=== PATIENT | female | born 1940 | race Caucasian/White ===

== ENCOUNTER → 2024-06-07 10:52 | Outpatient (REF) | payer OTHER, SELFPAY | LOC: RCS 10:52 | PROVIDERS: ATTENDING PHYSICIAN Internal Medicine Cardiovascular Disease; FAMILY PHYSICIAN Nurse Practitioner Family | DX: I48.0 Paroxysmal atrial fibrillation (principal); I27.20 Pulmonary hypertension, unspecified; E11.9 Type 2 diabetes mellitus without complications; I10 Essential (primary) hypertension | CPT/HCPCS: 93306 ==

== ENCOUNTER 2024-08-15 06:06 | Day surgery (SDC) | payer OTHER, SELFPAY ==
[2024-08-03 10:55] VITALS: BMI 25.6
[2024-08-03 11:31] LABS: ALT (SGPT) 15 U/L (0-35); AST (SGOT) 19 U/L (14-36); Albumin 4.3 g/dl (3.5-5.0); Alkaline Phosphatase 67 U/L (38-126); Blood Urea Nitrogen 23 mg/dl (7-17); Calcium 9.2 mg/dl (8.4-10.2); Carbon Dioxide 26 mmol/L (22-30); Chloride 108 mmol/L (98-107); Estimated Creatinine Clearance 35 ml/min; Glucose 310 mg/dl (70-99); Potassium 4.2 mmol/L (3.5-5.1); Sodium 141 mmol/L (135-145); Total Bilirubin 0.9 mg/dl (0.2-1.3); Total Protein 6.7 g/dl (6.3-8.2); eGFR > 60.00
[2024-08-03 12:10] LABS: % Basophils 0.8 % (0-2); % Eosinophils 0.8 % (0-6); % Immature Granulocytes 0.5 % (0-0.5); % Lymphocytes 28.6 % (20.5-51.1); % Monocytes 5.8 % (1.7-9.3); % Neutrophils 63.5 % (42.2-75.2); Absolute Basophils 0.1 10^3/uL (0-0.2); Absolute Eosinophils 0.1 10^3/uL (0-0.7); Absolute Lymphocytes 2.5 10^3/uL (1.2-3.4); Absolute Monocytes 0.5 10^3/uL (0.1-0.6); Absolute Neutrophils 5.4 10^3/uL (1.4-6.5); Hematocrit 41.7 % (37.0-47.0); Hemoglobin 13.4 g/dL (12.0-16.0); Mean Corp Hgb Conc. 32.1 g/dL (33.0-37.0); Mean Corpuscular Hgb 27.8 pg (27.0-31.0); Mean Corpuscular Volume 86.5 fL (81.0-99.0); Mean Platelet Volume 11.4 fL (7.4-10.4); Nucleated Red Blood Cells % 0 %; Platelet Count 158 10^3/uL (130-400); Red Blood Cell Count 4.82 10^6/uL (4.20-5.40); Red Cell Dist. Width 16.3 % (11.5-14.5); White Blood Cell Count 8.6 10^3/uL (4.8-10.8)
[2024-08-15] VITALS (13 sets, daily range): BP systolic 104–145; BP diastolic 47–78
[2024-08-15 06:50] LABS: Glucose - Point of Care 144 mg/dl (70-99)
[2024-08-15] MEDS: NSS 500 IV (06:56)
--- NOTE | 2024-08-15 09:29 | ITS.CL.ABL ---
[employer] - Ablation
Ablation
Procedure Report:
AFIB ablation:
Mr. Chen is a very pleasant 84 yr old woman with symptomatic paroxysmal AF, is recommended for atrial fibrillation ablation.
Date of the Procedure:
08/15/2024
Indications:
Paroxysmal atrial fibrillation
Pre-Operative Diagnosis:
Paroxysmal atrial fibrillation
Post-Operative Diagnosis:
Paroxysmal atrial fibrillation
Procedure Performed:
Atrial fibrillation ablation with Pulsed-Field approach for pulmonary vein isolation
Performing Physician:
Felix Espinoza MD
Assistants:
EP staff
Anesthesia:
See anesthesia records
Detailed Description of the Procedure:
Written informed consent was obtained from the patient after a full explanation of the risks and benefits of the procedure including the risks of sedation and anesthesia.
The patient was brought to the electrophysiology laboratory in stable condition in fasting state. Continuous electrocardiographic and hemodynamic monitoring was initiated.
The initial rhythm was sinus.
The procedure site was meticulously prepared with surgical scrub and allowed to dry with no pooling. Sterile draping was applied to cover the procedure site. The image intensifier was draped with sterile bag and positioned over the patient. After
infusion of local anesthetic, vascular access was obtained under ultrasound guidance and sheaths were placed over guide wire as detailed below.
Sheath and Catheter Placement:
The following catheters / sheaths were placed
Sheaths:
��������� 17Fr steerable sheath ([employer]ur[employer]icsadrive�, [email or web address]) in right femoral
��������� 9Fr in right femoral vein
Catheters:
��������� HIPOLITO HD Grid mapping catheter � at locations of RA, LA
��������� Farawave� PFA catheter
��������� ICE catheter � AcuNav - at locations of RA, SVC, and RV.
Intracardiac ECHO:
An 8-Mauritian AcuNav intracardiac ECHO (ICE) probe was advanced through the 9-Mauritian sheath in the right femoral vein into the right atrium under fluoroscopic and ICE ultrasound image guidance and a baseline ECHO study was performed. The left atrial
size was normal. There was moderate tricuspid regurgitation. The aortic valve was grossly normal. There was normal left ventricular systolic functions. There is trace pericardial effusion. All the four veins were identified and has flow identified.
There was good flow noted in the LASHAY.
During the procedure, ICE was used for monitoring of complications, guidance of trans-septal puncture, monitor the catheter position and tracking ablation lesions. No change in the pericardial space noted throughout the procedure.
Trans-septal Puncture:
Heparin was initiated and infused to maintain appropriate ACT. A pigtail guidewire was advanced through the 8-Mauritian sheath in the right femoral vein into the superior vena cava under fluoroscopic and ICE guidance. The 9-Mauritian sheath was exchanged
for a Faradrive sheath which was advanced into the superior vena cava. A transseptal RF pigtail via Faradrive connect system was utilized to perform the trans-septal puncture. The apparatus was withdrawn until it was in contact with the fossa
ovalis. The position was adjusted based on fluoroscopy and ultrasound images from ICE. Under fluoroscopic, hemodynamic and ICE ultrasound guidance, left atrium was cannulated by applying RF energy. Once atrial septum was cannulated, the pigtail wire
was advanced through the needle into the left atrium. The guide wire was advanced into the left superior pulmonary vein. Both the sheath and the dilator was advanced into the left atrium. The dilator with the needle was withdrawn. Blood was
aspirated from the Faradrive sheath and arterial blood confirmed. The sheath was flushed. Saline injection noted into the left atrium on ICE. The mapping catheter was advanced in the sheath into the left pulmonary vein. Left atrial pressure was
measured.
3D Electroanatomic Mapping:
Using the HD Grid catheter advanced through sheath into the left atrium, an electroanatomic map (EAM) of the left atrium was created using [employer] HIPOLITO mapping system. The map was used for localization of catheter position and tacking of ablation
lesions.
The EAM of the left atrium showed 4 pulmonary veins with all 4 veins electrically connected to the body the LA. It showed normal voltage on the posterior and anterior wall of the LA. The LA was mildly dilated in size.
Following the EAM, preparation were made for ablation.
Ablation:
Ablation # 1: Pulmonary vein Isolation:
Glycopyrrolate was not given due to the presence of dual chamber pacemaker. Using [employer] pulsed wave ablation system, pulmonary vein isolation was achieved. First the ablation catheter was placed in the LSPV and ostial ablation lesions were
performed in a counter clock gonzales approach all around the PV ostium circumferentially using the Farapulse catheter in �Guin� formation. Then the catheter was placed on the antral location (in Disc/flower formation) and multiple ablation lesions
were placed circumferentially on the antrum of the vein.
In the similar fashion, the LIPV were isolated.
Then the catheter was moved to right sided veins. The ostial and antral ablations were placed as noted above.
EPS and Confirmation of the PVI and bidirectional block:
Following achievement of entrance block at the pulmonary veins, pacing from the HD catheter in each of the four veins at 10 milliamps for 2 milliseconds showed entrance and exit block. All PVI were rechecked at the end of the case and remained
isolated. Entrance and exit block were demonstrated in all veins.
Post ablation Electroanatomic mapping:
Once ablation was completed, the EAM of the LA was done again in sinus rhythm with excellent demarcation of LA myocardium and isolated antral tissue. There was no significant scarring noted in the LA.
The LASHAY had healthy signals and was not isolated.
Procedure End
ICE study was done again that showed no epicardial accumulation. No complications noted.
Following the completion of the EP study, catheters were removed. Protamine 40 mg was given at the end of the procedure and ACT was checked repeatedly. The sheaths were removed and hemostasis achieved with �Figure of 8� and manual compression after
acceptable ACT is achieved.
Left atrial Pressure:
Pre-ablation: Mean LA pressure was 9mmHg
Post-ablation: Mean LA pressure was 22mmHg
Post-ablation: Mean RA pressure was 8mmHg
Estimated Blood loss:
<10 cc
Specimens Removed:
None.
Implants / Devices:
None
Urine output:
None
Packs / Drains/ Tubes:
None
Instrument / Sponge Count Correct:
Yes
Complications of the Procedure:
None
Condition of Patient at Time of Transfer:
Hemodynamically stable with no neurological or vascular compromise.
Summary:
Successful atrial fibrillation ablation with Pulsed Field approach for pulmonary vein isolation.
Figures from the Procedure:
Figure 1: The electroanatomic mapping (EAM) of the left atrium with bipolar voltage (purple indicates normal electrical activity with weller as no myocardial muscle electric activity indicating a line of block or scar.
[2024-08-15 11:59] LABS: Glucose - Point of Care 209 mg/dl (70-99)
[2024-08-15 12:03] LABS: ACT-LR - POC 364 Seconds (116-155)
[2024-08-15 12:03] LABS: ACT-LR - POC 350 Seconds (116-155)
[2024-08-15] MEDS: LASIX 20 MG IV (12:50)
--- NOTE | 2024-08-15 13:51 | W.PN.UPDATE ---
Update Note
Progress Note Update
Pt seen post PFA. Right groin site without ht/bleeding. OOB ambulating. Post EKG NSR 60s, no acute changes. SaO2 in low 90s with fine rales left base, improves with deep breath. IV lasix 20mg given with good urine output and improved pulse ox.
Resume eliquis tonight at usual time. Followup at [facility] as scheduled. Home later today if tele/groin site stable.
== END 2024-08-15 14:00 | disposition home or self-care (01) ==
LOC: CATH 06:06
PROVIDERS: ATTENDING PHYSICIAN Internal Medicine Cardiovascular Disease; FAMILY PHYSICIAN Nurse Practitioner Family; OTHER PHYSICIAN Internal Medicine Cardiovascular Disease
DX: I48.0 Paroxysmal atrial fibrillation (principal); I10 Essential (primary) hypertension; Z95.0 Presence of cardiac pacemaker; E11.9 Type 2 diabetes mellitus without complications; Z79.01 Long term (current) use of anticoagulants; Z79.899 Other long term (current) drug therapy; I27.20 Pulmonary hypertension, unspecified; I49.5 Sick sinus syndrome; Z98.890 Other specified postprocedural states
CPT/HCPCS: C1732; C1892; C1759; 36415; 80053; 82962; 85025; 85347; 86850; 86900; 86901; 93005; 93656; C1733; C1766